=== PATIENT | male | born 1955 | race Two or more races ===

== ENCOUNTER 2019-03-18 22:46 | Emergency (ER) | payer OTHER ==
[~2019-03-18] VITALS: Ht 152.4 cm; Wt 58.5 kg
--- NOTE | 2019-03-18 23:05 | NUR ---
ED Nurse Note: Pt walked in c/o abd pain since 1600. Pt stated he had food and afterwards had n/v. AO4. NAD. VSS.
--- NOTE | 2019-03-18 23:15 | NUR ---
ED Nurse Note: IV ACCESS ESTABLISHED. BLOOD COLLECTED; SENT DOWN TO LAB.
[2019-03-18 23:25] VITALS: BP 116/79
[2019-03-18] MEDS ORDERED: Omnipaque-300 100ml vial INJ PRN (23:45)
[2019-03-19 00:01] LABS: HEMATOCRIT 48.2 % (42.0-52.0); HEMOGLOBIN 16.9 G/DL (14.2-18.0); MEAN CORPUSCULAR VOLUME 87 FL (80-99); PLATELET COUNT 231 K/UL (150-450); RED BLOOD COUNT 5.55 M/UL (4.70-6.10); RED CELL DISTRIBUTION WIDTH 11.8 % (11.6-14.8)
--- NOTE | 2019-03-19 00:20 | NUR ---
ED Nurse Note: pt down to imaging.
[2019-03-19 00:25] LABS: INR 0.9 (0.9-1.1)
--- NOTE | 2019-03-19 00:40 | NUR ---
ED Nurse Note: PT RETURNED FROM IMAGING
[2019-03-19 00:43] LABS: ANION GAP 10 mmol/L (5-15); BLOOD UREA NITROGEN 20 mg/dL (7-18); CALCIUM 9.8 MG/DL (8.5-10.1); CARBON DIOXIDE 31 MMOL/L (21-32); CHLORIDE 104 MMOL/L (98-107); CREATININE 1.1 MG/DL (0.55-1.30); POTASSIUM 3.8 MMOL/L (3.5-5.1); SODIUM 144 MMOL/L (136-145)
[2019-03-19 00:48] LABS: ALANINE AMINOTRANSFERASE 33 U/L (12-78); ALBUMIN 4.3 G/DL (3.4-5.0); ALBUMIN/GLOBULIN RATIO 1.1 (1.0-2.7); ALKALINE PHOSPHATASE 80 U/L (46-116); ASPARTATE AMINO TRANSFERASE 31 U/L (15-37); BILIRUBIN,TOTAL 0.7 MG/DL (0.2-1.0)
--- NOTE | 2019-03-19 01:15 | NUR ---
ED Nurse Note: URINE COLLECTED; SENT DOWN TO LAB.
[2019-03-19 01:37] LABS: APPEARANCE,URINE CLEAR; BILIRUBIN, URINE NEGATIVE (NEGATIVE); GLUCOSE, URINE (UA) NEGATIVE (NEGATIVE); KETONES,URINE 3+ (NEGATIVE); LEUKOCYTE ESTERASE ,URINE NEGATIVE (NEGATIVE); NITRITE,URINE NEGATIVE (NEGATIVE); PH,URINE 7 (4.5-8.0); PROTEIN,URINE 1+ (NEGATIVE); UROBILINOGEN,URINE NORMAL MG/DL (0.0-1.0)
[2019-03-19 01:43] LABS: COLOR,URINE YELLOW
--- NOTE | 2019-03-19 03:17 | Emergency Room Report ---
History of Present Illness General Chief Complaint: Abdominal Pain Source: Patient Present Illness HPI Patient is a 63-year-old male presents after increased abdominal discomfort. Patient reports having multiple episodes of vomiting as well as increased abdominal fullness. He states he had onset of symptoms this morning. He reports having increased bloating. He had several episodes of vomiting. He denies any diarrhea. He denies prior abdominal surgeries. Patient reports having diffuse pain to his abdomen. He denies any recent bad food exposure or . Hematemesis Allergies: Coded Allergies: No Known Allergies (Unverified , 03/18/19) Patient History Past Medical History: see triage record Reviewed Nursing Documentation: PMH: Agreed; PSxH: Agreed Review of Systems All Other Systems: negative except mentioned in HPI Physical Exam Vital Signs Date Time Temp Pulse Resp B/P (MAP) Pulse Ox O2 Delivery O2 Flow Rate FiO2 03/18/19 23:00 98.1 86 16 116/79 (91) 95 Room Air Sp02 EP Interpretation: reviewed, normal General Appearance: normal inspection, well appearing, no apparent distress, alert, GCS 15 Head: atraumatic ENT: normal ENT inspection, hearing grossly normal, normal voice Neck: normal inspection, full range of motion, supple, no bony tend Respiratory: normal inspection, lungs clear, normal breath sounds, no respiratory distress, no retraction, no wheezing Cardiovascular #1: regular rate, rhythm, no edema Gastrointestinal: soft, tenderness Genitourinary: no CVA tenderness Musculoskeletal: normal inspection, back normal, normal range of motion Neurologic: normal inspection, alert, oriented x3, responsive, executive sales manager III-XII nml as tested, speech normal Psychiatric: normal inspection, judgement/insight normal, mood/affect normal Skin: normal color Medical Decision Making Diagnostic Impression: Primary Impression: Small bowel obstruction ER Course Patient presented for abdominal pain. Differential diagnoses included ischemic bowel, appendicitis, perforated viscus, abdominal aortic aneurysm, inferior myocardial infarction, viral gastroenteritis among others.Because patient's complexity imaging studies, and laboratory testing ordered. Laboratory testing showed . Elevated white blood count. CT of the abdomen pelvis showed: Multiple dilated loops of small bowel see radiology reports for full details. Patient was noted to have elevated white blood count and CT findings consistent with a possible bowel obstruction. Patient was given antiemetics initially. He was noted to have persistent generalized abdominal pain. Patient will be hospitalized for further evaluation and treatment . Was discussed with Dr. Morales who agreed to accept the patient as transfer [facility]. Laboratory Tests Test 03/18/19 23:15 03/19/19 01:15 White Blood Count 16.0 K/UL (4.8-10.8) H Red Blood Count 5.55 M/UL (4.70-6.10) Hemoglobin 16.9 G/DL (14.2-18.0) Hematocrit 48.2 % (42.0-52.0) Mean Corpuscular Volume 87 FL (80-99) Mean Corpuscular Hemoglobin 30.5 PG (27.0-31.0) Mean Corpuscular Hemoglobin Concent 35.1 G/DL (32.0-36.0) Red Cell Distribution Width 11.8 % (11.6-14.8) Platelet Count 231 K/UL (150-450) Mean Platelet Volume 6.8 FL (6.5-10.1) Neutrophils (%) (Auto) % (45.0-75.0) Lymphocytes (%) (Auto) % (20.0-45.0) Monocytes (%) (Auto) % (1.0-10.0) Eosinophils (%) (Auto) % (0.0-3.0) Basophils (%) (Auto) % (0.0-2.0) Prothrombin Time 10.1 SEC (9.30-11.50) Prothrombin Time INR 0.9 (0.9-1.1) PTT 25 SEC (23-33) Sodium Level 144 MMOL/L (136-145) Potassium Level 3.8 MMOL/L (3.5-5.1) Chloride Level 104 MMOL/L (98-107) Carbon Dioxide Level 31 MMOL/L (21-32) Anion Gap 10 mmol/L (5-15) Blood Urea Nitrogen 20 mg/dL (7-18) H Creatinine 1.1 MG/DL (0.55-1.30) Estimate Glomerular Filtration Rate > 60 mL/min (>60) Glucose Level 131 MG/DL (74-106) H Calcium Level 9.8 MG/DL (8.5-10.1) Total Bilirubin 0.7 MG/DL (0.2-1.0) Aspartate Amino Transferase (AST) 31 U/L (15-37) Alanine Aminotransferase (ALT) 33 U/L (12-78) Alkaline Phosphatase 80 U/L (46-116) Troponin I 0.000 ng/mL (0.000-0.056) Total Protein 8.1 G/DL (6.4-8.2) Albumin 4.3 G/DL (3.4-5.0) Globulin 3.8 g/dL Albumin/Globulin Ratio 1.1 (1.0-2.7) Lipase 119 U/L (73-393) Urine Color Yellow Urine Appearance Clear Urine pH 7 (4.5-8.0) Urine Specific [place] 1.010 (1.005-1.035) Urine Protein 1+ (NEGATIVE) H Urine Glucose (UA) Negative (NEGATIVE) Urine Ketones 3+ (NEGATIVE) H Urine Blood 1+ (NEGATIVE) H Urine Nitrite Negative (NEGATIVE) Urine Bilirubin Negative (NEGATIVE) Urine Ictotest Negative (NEGATIVE) Urine Urobilinogen Normal MG/DL (0.0-1.0) Urine Leukocyte Esterase Negative (NEGATIVE) Urine RBC 0-2 /HPF (0 - 0) H Urine WBC 0 /HPF (0 - 0) Urine Squamous Epithelial Cells None /LPF (NONE/OCC) Urine Bacteria None /HPF (NONE) Last Vital Signs Date Time Temp Pulse Resp B/P (MAP) Pulse Ox O2 Delivery O2 Flow Rate FiO2 03/18/19 23:25 86 16 Room Air 03/18/19 23:25 98.1 116/79 95 Status: unchanged Disposition: XFER [facility]M HOSP Condition: Stable Referrals: [facility],REFERR[facility] (PCP) Enrique Bonilla MD Mar 19, 2019 03:17
[2019-03-19 03:30] VITALS: BP 126/71
--- NOTE | 2019-03-19 03:51 | NUR ---
ED Nurse Note: REPORT GIVEN TO JOAQUINA G[facility]. PATIENT TO BE ADMITTED TO [facility] UNDER THE CARE OF THANIA OLSON
[2019-03-19 04:45] VITALS: BP 126/71
--- NOTE | 2019-03-19 04:45 | NUR ---
ED Nurse Note: REPORT GIVEN TO [facility]. PATIENT LEFT WITH EMS PERSONNEL WITH ALL BELONGINGS. IV FLUSHED AND PATENT.
--- NOTE | 2019-03-19 14:22 | Diagnostic Imaging Report ---
Indication: Abdominal pain Technique: Continuous helical transaxial imaging of the abdomen and pelvis was obtained from the lung bases to the pubic symphysis during intravenous contrast administration. Coronal 2-D reformats were also obtained. Study obtained in a Siemens sensation [address] Automatic Exposure Control was utilized. Total Dose length Product (DLP): 1567.[address] Dose Index Volume (CTDIvol): 30.4 mGy Comparison: None Findings: There is mild posterior dependent atelectasis. The stomach is distended. There are multiple dilated fluid-filled loops of the small bowel. This is associated with moderate degree of mucosal thickening and valvulae conniventes thickening and enhancement. There is no abrupt transition. The dilatation of small bowel is mainly proximal. The distal small bowel loops including the terminal ileum appear relatively normal in caliber, but fluid-filled with mucosal enhancement/thickening. The findings likely represent an inflammatory/infectious enteritis. The colon is also relatively decompressed. In terms of the question of a mechanical obstruction, I doubt complete bowel obstruction but would consider partial obstruction superimposed on the enteritis/ileus. Recommend follow-up. There is no free air. There is no pneumatosis. There is a tiny hypodensity in the anterior dome of the liver probably cystic. The spleen is normal in size. The pancreas appears normal. The kidneys and adrenal glands appear normal. There is no hydronephrosis. There is no ascites. Bladder is unremarkable. The appendix is normal. IMPRESSION: Diffuse generalized dilatation of fluid-filled small bowel with the moderate degree of mucosal thickening and enhancement. Suspect generalized small bowel enteritis. Superimposed partial bowel obstruction is not excluded although there is no identified mechanical point of obstruction. There is a gradual decrease in bowel caliber as described. Follow-up recommended. Tiny cyst suspected in the anterior dome of the liver. The CT scanner at [facility] is accredited by the [employer] and the scans are performed using dose optimization techniques as appropriate to a performed exam including Automatic Exposure control.
== END 2019-03-19 04:45 | disposition short-term general hospital (02) ==
LOC: EMR 23:30
DX: K56.609 Unspecified intestinal obstruction, unspecified as to partial versus complete obstruction (principal); D72.829 Elevated white blood cell count, unspecified
CPT/HCPCS: 36415; 74177; 80053; 81001; 83690; 84484; 85025; 85610; 85730; 86850; 86900; 86901; 96374; J2405; Q9967; Z7502; 99284